=== PATIENT | female | born 1955 | race Two or more races ===

== ENCOUNTER → 2024-11-23 | Outpatient (CLI) | payer OTHER, MEDICAID, SELFPAY ==
--- NOTE | 2024-11-23 10:27 | EKG_ITS ---
[facility] Test Date: 2024-11-23 Pat Name: LALITA SEQUEIRA Department: Room: - Gender: Female [employer]ist: ASHU : 1955 Requested By: James Foy (PCP) Order Number: [id number] Reading MD: James Foy (PCP) Measurements Intervals [place] Rate: 51 P: 42 ID: [id number] QRS: 38 QRSD: 83 T: 62 QT: 460 QTc: 425 Interpretive Statements SINUS BRADYCARDIA Compared to ECG 03/28/2022 17:00:56 Sinus rhythm no longer present /[id number]
[2024-11-23 10:39] LABS: Basophils % (Auto) 1 % (0-2.5); Eosinophils # (Auto) 0.2 Thou/mm3 (0.0-0.5); Eosinophils % (Auto) 5 % (0-10); Hematocrit 37.6 % (36.0-46.0); Hemoglobin 12.2 g/dL (12.0-16.0); Immature Granulocytes % (Auto) 0 % (0-0); Immature Granulocytes Auto 0.01 Thou/mm3 (0.00-0.00); Lymphocytes # (Auto) 1.3 Thou/mm3 (1.0-4.8); Lymphocytes % (Auto) 35 % (10-50); Mean Corpuscular HGB Conc 32.4 g/dl (31.0-37.0); Mean Corpuscular Hemoglobin 30.8 pg (25.0-35.0); Mean Corpuscular Volume 95 fL (80-100); Monocytes # (Auto) 0.4 Thou/mm3 (0.0-0.8); Monocytes % (Auto) 9 % (0-12); Neutrophils # (Auto) 1.9 Thou/mm3 (1.8-7.7); Neutrophils % (Auto) 51 % (37-80); Nucleated Red Blood Cell % 0 /100 WBC (0); Platelet Count 287 Thou/mm3 (140-440); RDW Standard Deviation 48.5 fL (36.4-46.3); Red Blood Count 3.96 Miln/mm3 (4.00-5.20); White Blood Count 3.8 Thou/mm3 (3.6-11.0)
[2024-11-23 11:13] LABS: Anion Gap 8 (7-16); BUN/Creatinine Ratio 26 Ratio (12-20); Blood Urea Nitrogen 18 mg/dL (9-23); Calcium 9.2 mg/dL (8.3-10.6); Carbon Dioxide 28.3 mMol/L (20.0-31.0); Chloride 105 mMol/L (98-107); Creatinine (Component) 0.7 mg/dL (0.6-1.3); Glucose 98 mg/dL (74-106); Osmolality,Calculated 283 (275-295); Potassium 4.3 mMol/L (3.4-5.1); Sodium 141 mMol/L (136-145); eGFR > 60 See Note
== END | disposition home or self-care (01) ==
LOC: COPL 09:40
PROVIDERS: PCP Family Medicine; Referring Provider Family Medicine; Visit Provider Family Medicine
DX: R55 Syncope and collapse (principal); R07.9 Chest pain, unspecified; R00.2 Palpitations
CPT/HCPCS: 36415; 80048; 85025; 93005

== ENCOUNTER → 2024-12-29 | Outpatient (CLI) | payer OTHER, MEDICAID, SELFPAY ==
--- NOTE | 2024-12-29 14:29 | XR_ITS ---
Examination: Cervical spine 3 views Technique one AP lateral coned AP odontoid cervical spine 3 views Exam date and time: December 29, 2024 1539 hours INDICATIONS: Neck pain radiating to the right arm one month FINDINGS: Adequate alignment cervical vertebral bodies No cervical fracture Mild to moderate degenerative disc disease C6-C7 IMPRESSION: Mild to moderate degenerative disc disease C6-C7
== END | disposition home or self-care (01) ==
PROVIDERS: PCP Family Medicine; Referring Provider Family Medicine; Visit Provider Family Medicine
DX: M50.323 Other cervical disc degeneration at C6-C7 level (principal)
CPT/HCPCS: 72040

== ENCOUNTER → 2025-07-19 | Outpatient (CLI) | payer OTHER, MEDICAID, SELFPAY ==
--- NOTE | 2025-07-19 09:15 | XR_ITS ---
Examination: Screening digital mammography, bilateral Computer aided detection 3-D breast Tomosynthesis, bilateral Date and time of exam: July 19, 2025, 0934 hours, compared to mammograms dating to May 30, 2018 Indication: Screening Technique: Nonmagnified MLO, CC views of the breasts to been obtained, reconstructed from 3-D Tomosynthesis images. R2 computer aided detection program utilized for evaluation of suspicious masses and/or abnormal calcifications. 3-D Tomosynthesis images obtained. Findings: The breasts are heterogeneously dense, which may obscure small masses Stable architectural distortion and surgical clips upper outer left breast consistent with patient's history of left breast cancer postlumpectomy 2021 No interval suspicious masses Benign calcifications Impression: BI-RADS category II: Benign Findings. Recommend 1 year follow-up mammogram.
== END | disposition home or self-care (01) ==
PROVIDERS: Referring Provider Nurse Practitioner Family; Visit Provider Nurse Practitioner Family
DX: Z12.31 Encounter for screening mammogram for malignant neoplasm of breast (principal); R92.323 Mammographic fibroglandular density, bilateral breasts; R92.8 Other abnormal and inconclusive findings on diagnostic imaging of breast; Z85.3 Personal history of malignant neoplasm of breast
CPT/HCPCS: 77063; 77067